=== PATIENT | male | born 1975 | race Caucasian/White ===

== ENCOUNTER 2024-05-16 17:49 | Emergency (ER) | payer OTHER, SELFPAY ==
--- NOTE | ~2024-05-16 | CT_ITS ---
CT brain wo con Ordering provider: Renny Lyman MD History: 48 years Male with . head injury/headache x5 days . Comparison: None. Technique: CT of the head without contrast. Radiation reduction technique utilized.The dose-length product was 605.33 mGy-cm. FINDINGS: BRAIN PARENCHYMA AND CSF SPACES: No midline shift, mass effect or hemorrhage. The brain parenchyma a nd CSF spaces are otherwise normal. VISUALIZED PARANASAL SINUSES: Bilateral ethmoid sinus disease the. MASTOIDS: Well aerated. BONES: The bones appear intact. SOFT TISSUES: Visualized nasopharynx is normal. Superficial soft tissues are normal. IMPRESSION: No acute intracranial findings. Reviewed, dictated and finalized at location A. 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
--- NOTE | ~2024-05-16 | CT_ITS ---
CT facial & cervical spine wo Ordering provider: Renny Lyman MD History: . face injury/headache x5 days . Comparison: May the Technique: Thin slice axial CT of the facial bones was performed without contrast. Coronal and sagit fifi reformatted images were also obtained. . Automated exposure control and iterative reconstruction technique were employed. The dose-length product was 523.71 mGy-cm. FINDINGS: PARANASAL SINUSES: Right frontal and bilateral ethmoid sinus disease. BONES: No facial fracture including no nasal bone fracture. ORBITS AND SUPERFICIAL SOFT TISSUES: The optic globes and orbits are normal. The superficial soft tis sues are normal. Bilateral submandibular lymph nodes the largest measures 1.3 cm. VISUALIZED MASTOIDS: Well aerated. LIMITED VISUALIZED BRAIN PARENCHYMA: Normal. IMPRESSION: No facial fracture. CT facial & cervical spine wo Ordering provider: Renny Lyman MD History: . face injury/headache x5 days . Comparison: None. Technique: CT of the cervical spine was performed without contrast. Sagittal and coronal reformatted images were also obtained and reviewed. Automated exposure control and iterative reconstruction beryl hnique were employed. The dose-length product was 523.71 mGy-cm. FINDINGS: VERTEBRAE: No subluxation or acute fracture. The occipital condyles are intact. DISC SPACES: Normal. Narrowing of the left foramina at the level of C3-C4. PARASPINOUS SOFT TISSUES: Normal. IMPRESSION: No acute osseous abnormality cervical spine. Reviewed, dictated and finalized at location A. 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 CT facial & cervical spine wo Ordering provider: Renny Lyman MD History: . face injury/headache x5 days . Comparison: None. Technique: CT of the cervical spine was performed without contrast. Sagittal a nd coronal reformatted images were also obtained and reviewed. Automated expos ure control and iterative reconstruction technique were employed. The dose-blane th product was 523.71 mGy-cm. FINDINGS: VERTEBRAE: No subluxation or acute fracture. The occipital condyles are intact. DISC SPACES: Normal. Narrowing of the left foramina at the level of C3-C4. PARASPINOUS SOFT TISSUES: Normal.
[2024-05-16 17:54] VITALS: BP 149/99; PULSE 85; RESP 18; TEMP 36.7; O2SAT 98
--- NOTE | 2024-05-16 18:03 | ED_ITS ---
HPI - Head Injury General Chief complaint: Head Injury Stated complaint: HEAD INJURY Time Seen by Provider: 05/16/24 17:56 Source: patient Mode of arrival: ambulatory Limitations: no limitations History of Present Illness HPI Narrative: patient is a 48-year-old male who walked into a tree and hurt his left face and head 5 days ago. He went to the Urgent Care for continued pain up in that area and watery discharge from the eye. They sent him to the ER for further radiography. MD Complaint: head injury and other ( Face injury) Onset (ago): day(s) (5) Mechanism of Injury: other ( walked into a tree and hit the left face and head) Place: outdoors Loss of Consciousness: no Location of injury: frontal ( left) and face ( left) Severity: mild Severity scale (1-10): 3 Quality: sharp Radiation: none Other Injuries: none Context: other ( patient walked into a treat and hurt the left face and head; not on blood thinners; no LOC) Associated symptoms: denies other symptoms Related Data Home Medications ?Medication ?Instructions ?Recorded ?Confirmed ?Last Taken ?Type hydrocodone 7.5 mg-acetaminophen 1 tablet PO Q6-8H PAIN 05/16/24 Unknown History 325 mg tablet pantoprazole 20 mg tablet,delayed 20 mg PO Q12H 05/16/24 Unknown History release sildenafil 100 mg tablet 100 mg PO Q24H PRN sexual activity 05/16/24 Unknown History zolpidem 5 mg tablet 5 mg PO HS PRN insomnia 05/16/24 Unknown History Allergies Allergy/AdvReac Type Severity Reaction Status Date / Time No Known Allergies Allergy Verified 05/16/24 18:12 Review of Systems Review of Systems: All systems reviewed & are unremarkable except as noted in HPI and below Constitutional: Constitutional: Reports no additional constitutional complaints Eyes: Eyes: Reports no additional eye complaints ENT: Reports system reviewed and no additional complaints, except as documented Cardiovascular: Cardiovascular: Reports no additional cardiovascular comp laints Respiratory: Respiratory: Reports no additional respiratory complaints Gastrointestinal: Gastrointestinal: Reports no additional gastrointestinal complaints Genitourinary: Genitourinary: Reports no additional male genitourinary com plaints Musculoskeletal: Musculoskeletal: Reports no additional musculoskeletal complaints Integumentary/Breasts: Skin/Breast: Reports system reviewed and no additional complaints, except as docu Neurologic: Reports system reviewed and no additional complaints, except as documented Psychiatric: Psychiatric: Reports no additional psychiatric complaints Endocrine: Endocrine: Reports no additional endocrine complaints Hematologic/Lymphatic: Hematologic/Lymphatic: Reports no additional hematologic/lymphatic complaints Allergic/Immunologic: Allergic/Immunologic: Reports no additional allergic/immunologic complaints PMFSH Social History Social History Alcohol intake: never Exam Const: General: healthy appearing Nutritional Appearance: well nourished Orientation/consciousness: patient oriented x3 Limitations: no limitations HENMT: Head: normal to inspection Ears: external ears normal Face/Nose/Sinus: Normal external nose present Eyes: Conjunctivae: conjunctivae normal Pupils: Equal, round and reactive pupils present EOM: EOMs intact bilaterally Neck: Neck: normal visual inspection Chest: Chest palpation & inspection: normal inspection of the chest Resp: Effort & Inspection: normal respiratory effort and not labored Auscultation: clear to auscultation bilaterally and no crackles Cardio: Rate: regular rate Rhythm: regular rhythm Heart sounds: no murmurs GI: Inspection: non-distended GI Palp: Yes Soft to palpation and No Tenderness to palpation present (GI) Auscultation: normal bowel sounds : General: Yes bladder normal to palpation Back/Spine/Pelvis: Back: no CVA tenderness Skin: General skin exam: normal color Rashes: no rashes Wounds: no wounds Other: slight swelling and edema of the left frontal and cheek bones on the left after injury without open wounds or signs of cellulitis Neuro: General: patient oriented x3, moves all extremities, no meningeal signs and no focal motor deficits Cranial nerves: Yes CN's II-XII intact bilaterally Speech: normal speech Gait exam (Neuro): Normal gait present Other: fast exam is negative GCS is 15 NIH score is 0 Extrem: General: normal to inspection Psych: Mental Status: mental status grossly normal Affect: normal affect Attitude: cooperative Course Vital Signs Vital signs: Vital Signs Temperature 36.7 C 05/16/24 17:54 Pulse Rate 85 05/16/24 17:54 Respiratory Rate 18 05/16/24 17:54 Blood Pressure 149/99 H 05/16/24 17:54 Pulse Oximetry 98 05/16/24 17:54 Oxygen Delivery Room Air 05/16/24 17:54 Temperature 36.7 C 05/16/24 17:54 Pulse Rate 85 05/16/24 17:54 Respiratory Rate 18 05/16/24 17:54 Blood Pressure 149/99 H 05/16/24 17:54 Pulse Oximetry 98 05/16/24 17:54 Oxygen Delivery Room Air 05/16/24 17:54 MDM - Head Injury MDM Narrative Medical decision making narrative: patient is a 48-year-old male with an injury to the face and head on the left 5 days ago. He was sent here from urgent care for further radiography. We will do a CT of the head neck and face. Imaging Data Attestation: I personally reviewed and interpreted this imaging study as follows: Radiologist's impression: CT scan of the head was negative for acute process CT scan of the facial bones and cervical spine is negative for acute process Discharge Plan Discharge Clinical Impression: Closed head injury Qualifiers: Encounter type: initial encounter Qualified Code(s): S09.90XA - Unspecified injury of head, initial encounter Patient Disposition: Home, Self-Care Condition: Stable Instructions: Concussion (ED), Head Injury (ED) Additional Instructions: please follow-up with the primary doctor in the next week. I suggest seeing an gold nib grinder or an materials planner if continued left eye changes. I have given you a handout on concussions case you had further information needs about that condition. Patient Language: Montserratian Prescriptions: No Action sildenafil 100 mg tablet 100 mg PO Q24H PRN (Reason: sexual activity) pantoprazole 20 mg tablet,delayed release (DR/EC) 20 mg PO Q12H hydrocodone-acetaminophen 7.5-325 mg tablet 1 tablet PO Q6-8H zolpidem 5 mg tablet 5 mg PO HS PRN (Reason: insomnia) Follow-up/Referrals: UNKNOWN,DOCTOR [Primary Care Provider] - Time of Disposition: 19:30
[2024-05-16 19:46] VITALS: BP 135/80; PULSE 82; RESP 16; TEMP 36.7; O2SAT 98
== END 2024-05-16 19:46 | disposition home or self-care (01) ==
PROVIDERS: Emergency Provider Emergency Medicine
DX: S09.90XA Unspecified injury of head, initial encounter (principal); W22.09XA Striking against other stationary object, initial encounter
CPT/HCPCS: 70450; 70486; 72125; 99284